=== PATIENT | female | born 1980 | race Caucasian/White ===

== ENCOUNTER 2017-03-13 19:59 | Emergency (ER) | payer OTHER ==
[~2017-03-13 19:59] MED LIST: ANUSOL-HC25 MG/SUPP RC; BUS5 PO; COL100 PO; METP PO; MOTRIN800 MG PO; ROB750 PO; TYLENOL EXTRA500 M2 PO; XAN1
[2017-03-13 22:19] LABS: BASOPHIL % 0.4 % (0-2); PLATELET COUNT 179 x10^3mcL (130-400)
[2017-03-13 22:52] LABS: CALCIUM 9.2 mg/dL (8.5-10.1); CARBON DIOXIDE 25.9 mmol/L (21-32); CHLORIDE SERUM 103 mmol/L (98-107); CREATININE SERUM 0.7 mg/dL (0.6-1.0); GFR1 > 60 mL/min; GLUCOSE SERUM 101 mg/dL (74-106); POTASSIUM SERUM 3.1 mmol/L (3.5-5.1); SODIUM SERUM 136 mmol/L (136-145)
[2017-03-13 22:57] LABS: ALBUMIN 3.3 g/dL (3.4-5.0); ALKALINE PHOSPHATASE 50 U/L (46-116); ALT/SGPT 102 U/L (14-59); AST/SGOT 55 U/L (15-37); BILIRUBIN TOTAL 0.45 mg/dL (0.20-1.00); TOTAL PROTEIN, SERUM 6.8 g/dL (6.4-8.2)
[2017-03-13 23:36] VITALS: BP 150/99
== END 2017-03-13 23:36 | disposition home or self-care (01) ==
LOC: ED 19:59
PROVIDERS: Emergency Medicine
DX: I87.8 Other specified disorders of veins (principal)
CPT/HCPCS: 36415; Q0092

== ENCOUNTER 2017-06-30 07:55 | Emergency (ER) | payer OTHER ==
[2017-06-30 09:38] VITALS: BP 139/87
== END 2017-06-30 09:38 | disposition home or self-care (01) ==
LOC: ED 07:55
DX: J20.9 Acute bronchitis, unspecified (principal); F17.210 Nicotine dependence, cigarettes, uncomplicated; R03.0 Elevated blood-pressure reading, without diagnosis of hypertension; Z88.0 Allergy status to penicillin
CPT/HCPCS: 99406; J7613; J7644; Q0092

== ENCOUNTER 2018-02-23 04:57 | Emergency (ER) | payer OTHER ==
[~2018-02-23] VITALS: Ht 172.7 cm; Wt 85.3 kg
[2018-02-23 05:02] VITALS: Ht 172.7 cm; Wt 85.3 kg
[2018-02-23 06:27] LABS: BASOPHIL % 0.4 % (0-2); PLATELET COUNT 235 x10^3mcL (130-400); RED CELL DISTRIBUTION WIDTH 12.5 % (11.5-14.5)
[2018-02-23 06:36] LABS: CALCIUM 9.3 mg/dL (8.5-10.1); CARBON DIOXIDE 27.8 mmol/L (21-32); CHLORIDE SERUM 102 mmol/L (98-107); CREATININE SERUM 0.6 mg/dL (0.6-1.0); GFR1 > 60 mL/min; GLUCOSE SERUM 100 mg/dL (74-106); POTASSIUM SERUM 4.1 mmol/L (3.5-5.1); SODIUM SERUM 138 mmol/L (136-145)
[2018-02-23 06:40] LABS: ALKALINE PHOSPHATASE 39 U/L (46-116); ALT/SGPT 35 U/L (14-59); AST/SGOT 22 U/L (15-37); BILIRUBIN TOTAL 0.76 mg/dL (0.20-1.00)
[2018-02-23 06:47] LABS: TOTAL PROTEIN, SERUM 8.5 g/dL (6.4-8.2)
[2018-02-23 09:06] VITALS: BP 117/73
== END 2018-02-23 09:06 | disposition home or self-care (01) ==
LOC: ED 04:57
PROVIDERS: Emergency Medicine
DX: M94.0 Chondrocostal junction syndrome [Tietze] (principal); Z88.0 Allergy status to penicillin
CPT/HCPCS: 83880; 85378; J1885; J2270; J2405; J3490

== ENCOUNTER 2018-04-24 19:21 | Emergency (ER) | payer OTHER ==
[~2018-04-24] VITALS: Ht 172.7 cm; Wt 88.5 kg
[2018-04-24 19:25] VITALS: Ht 172.7 cm; Wt 88.5 kg
[2018-04-24 21:36] VITALS: BP 141/87
== END 2018-04-24 21:36 | disposition home or self-care (01) ==
LOC: ED 19:21
DX: S62.232A Other displaced fracture of base of first metacarpal bone, left hand, initial encounter for closed fracture (principal); I10 Essential (primary) hypertension; Z88.0 Allergy status to penicillin; W01.0XXA Fall on same level from slipping, tripping and stumbling without subsequent striking against object, initial encounter; Y93.89 Activity, other specified; Y92.89 Other specified places as the place of occurrence of the external cause; Y99.8 Other external cause status
CPT/HCPCS: J1885

== ENCOUNTER 2019-04-22 09:43 | Emergency (ER) | payer OTHER ==
[~2019-04-22] VITALS: Ht 172.7 cm; Wt 87.5 kg
[2019-04-22 09:48] VITALS: Ht 172.7 cm; Wt 87.5 kg
[2019-04-22 11:20] LABS: CALCIUM 8.3 mg/dL (8.5-10.1); CARBON DIOXIDE 28.6 mmol/L (21-32); CHLORIDE SERUM 102 mmol/L (98-107); CREATININE SERUM 0.6 mg/dL (0.6-1.0); GFR1 > 60 mL/min; GLUCOSE SERUM 81 mg/dL (74-106); POTASSIUM SERUM 4.1 mmol/L (3.5-5.1); SODIUM SERUM 138 mmol/L (136-145)
[2019-04-22 11:30] LABS: BASOPHIL % 0.8 % (0-2); PLATELET COUNT 229 x10^3mcL (130-400); RED CELL DISTRIBUTION WIDTH 13.2 % (11.5-14.5)
[2019-04-22 11:31] LABS: ALBUMIN 3.8 g/dL (3.4-5.0); ALKALINE PHOSPHATASE 41 U/L (46-116); ALT/SGPT 80 U/L (14-59); AST/SGOT 30 U/L (15-37); BILIRUBIN TOTAL 0.5 mg/dL (0.20-1.00); LIPASE 122 IU/L (73-393); TOTAL PROTEIN, SERUM 7.2 g/dL (6.4-8.2)
[2019-04-22 14:22] VITALS: BP 138/88
== END 2019-04-22 14:22 | disposition home or self-care (01) ==
LOC: ED 09:43
PROVIDERS: Emergency Medicine
DX: G44.209 Tension-type headache, unspecified, not intractable (principal); R20.2 Paresthesia of skin; I10 Essential (primary) hypertension; F41.9 Anxiety disorder, unspecified; Z88.0 Allergy status to penicillin
CPT/HCPCS: J1100; J2765; Q9967

== ENCOUNTER 2020-05-22 00:35 | Emergency (ER) | payer OTHER ==
[~2020-05-22] VITALS: Ht 172.7 cm; Wt 82.6 kg
[2020-05-22 00:45] VITALS: Ht 172.7 cm; Wt 82.6 kg
[2020-05-22 01:41] LABS: BASOPHIL % 0.5 % (0-2); PLATELET COUNT 211 x10^3mcL (130-400); RED CELL DISTRIBUTION WIDTH 13.1 % (11.5-14.5)
[2020-05-22 01:44] LABS: CALCIUM 8.6 mg/dL (8.5-10.1); CARBON DIOXIDE 27.2 mmol/L (21-32); CHLORIDE SERUM 102 mmol/L (98-107); CREATININE SERUM 0.8 mg/dL (0.6-1.0); GFR1 > 60 mL/min; GLUCOSE SERUM 96 mg/dL (74-106); SODIUM SERUM 138 mmol/L (136-145)
[2020-05-22 01:49] LABS: ALBUMIN 3.6 g/dL (3.4-5.0); ALKALINE PHOSPHATASE 33 U/L (46-116); ALT/SGPT 49 U/L (14-59); AST/SGOT 31 U/L (15-37); BILIRUBIN TOTAL 0.78 mg/dL (0.20-1.00)
[2020-05-22 02:46] VITALS: BP 137/83
== END 2020-05-22 02:46 | disposition home or self-care (01) ==
LOC: ED 00:35
PROVIDERS: Emergency Medicine
DX: I10 Essential (primary) hypertension (principal); F41.9 Anxiety disorder, unspecified; Z88.0 Allergy status to penicillin
CPT/HCPCS: J2765; Q0092